=== PATIENT | male | born 1960 | race Caucasian/White ===

== ENCOUNTER → 2018-06-29 11:28 | Outpatient (CLI) | payer BC, SELFPAY ==
[2018-07-07 14:00] LABS: Catecholamines, Total 923 pg/mL
== END ==
PROVIDERS: PCP Physician Assistant Medical; Visit Provider Physician Assistant Medical
DX: R07.89 Other chest pain (principal); I10 Essential (primary) hypertension
CPT/HCPCS: 36415; 82384

== ENCOUNTER → 2020-09-17 12:48 | Outpatient (CLI) | payer BC, SELFPAY ==
[2020-09-17 21:41] LABS: COVID19 - ORCAS (NP or Nasal) Negative (Negative)
== END ==
PROVIDERS: PCP Physician Assistant Medical; Visit Provider Physician Assistant Medical
DX: Z20.822 Contact with and (suspected) exposure to COVID-19 (principal)
CPT/HCPCS: U0003

== ENCOUNTER → 2021-10-15 12:52 | Outpatient (CLI) | payer BC, SELFPAY ==
--- NOTE | 2021-10-15 12:52 | DI.US.S_ITS ---
PROCEDURE: US PERIPH VENOUS LOW EXTREM RT INDICATIONS: R lower leg swelling ongoing TECHNIQUE: Real-time imaging, as well as color and pulse Doppler interrogation, were performed of the lower extremity deep veins from the inguinal ligament to the popliteal fossa. COMPARISON: None. FINDINGS: The common femoral, femoral and popliteal veins are normally compressible, and free of intraluminal thrombus. Color and pulse Doppler demonstrate normal phasic intraluminal flow. There is normal augmentation response to distal compression maneuver. Incidental note is made of reflux within the right common femoral vein, 3.9 seconds. IMPRESSION: Negative for deep venous thrombosis. Right common femoral vein reflux noted. Dictated by: Junior Cifuentes M.D. on 10/15/2021 at 12:42 Approved by: Junior Cifuentes M.D. on 10/15/2021 at 12:43
== END ==
PROVIDERS: PCP Physician Assistant Medical; Referring Provider Physician Assistant Medical; Visit Provider Physician Assistant Medical
DX: M79.89 Other specified soft tissue disorders (principal)
CPT/HCPCS: 93971

== ENCOUNTER → 2022-03-26 15:24 | Outpatient (CLI) | payer BC, SELFPAY ==
[2022-04-01 23:55] LABS: Pancreatic Elastase, Fecal 366 (>200)
== END ==
PROVIDERS: PCP Physician Assistant Medical; Referring Provider Physician Assistant Medical; Visit Provider Physician Assistant Medical
DX: K52.9 Noninfective gastroenteritis and colitis, unspecified (principal)
CPT/HCPCS: 82656

== ENCOUNTER → 2024-03-28 11:47 | Outpatient (CLI) | payer BC, SELFPAY ==
[2024-03-28 19:28] LABS: Hematocrit 41.4 % (41-53); Hemoglobin 14.1 g/dL (13.5-17.5); Mean Corpuscular Hemoglobin 33.2 PG (26-34); Mean Corpuscular Volume 97.9 fL (80-100); Platelet Count 347 X10^3/uL (150-400); Red Blood Cell Count 4.23 X10^6/uL (4.5-5.9); Red Cell Distribution Width 13.7 % (11.6-14.8); White Blood Cell Count 7.8 X10^3/uL (4.5-11.0)
[2024-03-28 19:50] LABS: Albumin Globulin Ratio 1.5 (1.0-2.8); Alkaline Phosphatase 74 U/L (38-126); Aspartate Aminotransferase 33 IU/L (17-59); BUN Creatinine Ratio 20.3 (6-22); Bilirubin Total 0.6 mg/dL (0.2-1.3); Blood Urea Nitrogen 15 mg/dL (9-20); Calcium 9.2 mg/dL (8.4-10.2); Carbon Dioxide 24 mmol/L (22-32); Chloride 105 mmol/L (98-107); Estimated Glomerular Filt Rate > 60 mL/min (>60); Globulin 2.6 g/dL (1.7-4.1); Glucose 98 mg/dL (80-110); HEMOLYSIS < 15 (0-50); Potassium 4.4 mmol/L (3.4-5.1); Sodium 137 mmol/L (137-145); Total Protein 6.6 g/dL (6.3-8.2)
[2024-03-28 19:52] LABS: HCG Quantitative /Beta subunit < 2.39 mIU/mL (<2.40); Prolactin 9.7 ng/mL (3.7-17.9)
[2024-03-28 20:05] LABS: Prostate Specific Antigen 0.657 ng/mL (0.10-4.00)
[2024-03-28 20:06] LABS: Alanine Aminotransferase 38 IU/L (<50)
[2024-03-28 20:11] LABS: Estradiol, Total 36.3 pg/mL
[2024-04-05 10:36] LABS: Testosterone Free 4.58 ng/dL (5.00-21.00)
== END ==
PROVIDERS: Nurse Practitioner; PCP Physician Assistant Medical; Visit Provider Physician Assistant Medical
DX: Z13.29 Encounter for screening for other suspected endocrine disorder (principal); N64.4 Mastodynia; I10 Essential (primary) hypertension
CPT/HCPCS: 80053; 82670; 84146; 84153; 84402; 84403; 84443; 84702; 85027